=== PATIENT | female | born 1930 | race Caucasian/White ===

== ENCOUNTER 2018-07-23 13:33 | Emergency (ER) | payer MEDICARE, OTHER ==
[2018-07-23] MEDS: LIDOCAINE 5% PATCH TD (18:09)
== END 2018-07-23 18:21 | disposition home or self-care (01) ==
LOC: E/R 13:33
DX: M25.552 Pain in left hip (principal); I10 Essential (primary) hypertension; E11.9 Type 2 diabetes mellitus without complications
CPT/HCPCS: 73510; 99283-25